=== PATIENT | female | born 1945 ===

== ENCOUNTER 2017-01-01 10:25 | Observation (INO) | payer MEDICAID ==
--- NOTE | 2017-01-01 11:16 | ED PDOC ---
Arrival/HPI - General Chief Complaint: Syncope Time Seen by Provider: 01/01/17 10:29 Historian: Patient - History of Present Illness Narrative History of Present Illness (Text): 01/01/17 11:16 A 71 year old female, who denies any past medical history, presents to the emergency department complaining of dizziness and a syncopal episode this morning approximately 07:15. History obtained by daughter. Daughter reports patient walked to the bathroom, felt dizzy and fell backwards. Patient denies any injuries or complaints. Patient denies any headache, neck pain, back pain, fever, chills, nausea, vomiting, diarrhea, abdominal pain, urinary symptoms, chest pain, shortness of breath or any other complaints. PMD: Dr. Weinberg Time/Duration: Other (This morning, approximately 07:15) Quality: Other Context: Home Past Medical History - Provider Review Nursing Documentation Reviewed: Yes - Cardiac Hx Cardiac Disorders: No - Pulmonary Hx Respiratory Disorders: No - Neurological Hx Neurological Disorder: Yes Hx Dizziness: Yes - HEENT Hx HEENT Disorder: Yes Hx Cataracts: Yes Other/Comment: partially blind - Renal Hx Renal Disorder: No - Endocrine/Metabolic Hx Endocrine Disorders: No - Hematological/Oncological Hx Blood Disorders: No - Integumentary Hx Dermatological Disorder: No - Musculoskeletal/Rheumatological Hx Musculoskeletal Disorders: No - Gastrointestinal Hx Gastrointestinal Disorders: No - Genitourinary/Gynecological Hx Genitourinary Disorders: No - Psychiatric Hx Psychophysiologic Disorder: No Hx Substance Use: No - Anesthesia Hx Anesthesia Reactions: No Family/Social History - Physician Review Nursing Documentation Reviewed: Yes Family/Social History: No Known Family HX Smoking Status: Never Smoked Hx Alcohol Use: No Hx Substance Use: No Allergies/Home Meds Allergies/Adverse Reactions: Allergies No Known Allergies Allergy (Verified 01/01/17 10:30) Home Medications: Home Meds Medication Instructions Recorded Confirmed Multivitamin/Iron/Folic Acid 1 each PO DAILY 01/01/17 01/01/17 [Centrum Women Tablet] Review of Systems - Physician Review All systems were reviewed & negative as marked: Yes - Review of Systems Constitutional: absent: Fevers Respiratory: absent: SOB Cardiovascular: Syncope. absent: Chest Pain Gastrointestinal: absent: Abdominal Pain, Diarrhea, Nausea, Vomiting Genitourinary Female: absent: Dysuria, Frequency, Hematuria, Urine Output Changes Musculoskeletal: absent: Back Pain, Neck Pain Neurological: Dizziness. absent: Headache Physical Exam - Physical Exam Narrative Physical Exam (Text): Constitutional: No acute distress. Head: Normocephalic. Atraumatic. Eyes: PERRL. ENT: Moist mucous membranes. Neck: Supple. No midline tenderness. Cardiovascular: Regular rate. Chest: No tenderness. Respiratory: Clear to auscultation bilaterally. GI: Soft. Nontender. Nondistended. Back: No CVA tenderness. No midline tenderness. Musculoskeletal: No tenderness or swelling of extremities. Full ROM. Skin: No rash. Neurologic: Alert, no focal deficit. Vital Signs Reviewed: Yes Vital Signs Temp Pulse Resp BP Pulse Ox 01/01/17 12:31 84 18 149/79 99 01/01/17 10:34 97.8 F 87 18 158/82 H 99 Temperature: Afebrile Blood Pressure: Hypertensive Pulse: Regular Respiratory Rate: Normal Appearance: Positive for: Well-Appearing, Non-Toxic, Comfortable Pain Distress: None Mental Status: Positive for: Alert and Oriented X 3 Finger Stick Blood Glucose: 138 Medical Decision Making ED Course and Treatment: 01/01/17 11:16 Impression: A 71 year old female presents after syncopal episode. Patient notes dizziness but denies any injuries. Plan: -- Head CT -- Chest xray -- Pelvis xray -- Labs -- Urine culture and Urinalysis -- Reassess and disposition Progress Notes: EKG shows NSR at [address]/T wave changes, normal intervals. Interpreted by me. Report Date : 01/01/2017 12:33:18 PROCEDURE: CT HEAD WITHOUT CONTRAST. Dictator : Alireza Guaman MD IMPRESSION: Probable focal acute left temporal parenchymal hemorrhage without associated extra-axial or intraventricular hemorrhage. CXR no acute disease. Pelvis no fracture. Dr. Ruiz accepts patient to hospitalist service. Dr. Lugo accepts patient to ICU. Dr. Duran accepts patient for neurosurgery consult. States no intervention at this time and recommends neurology consultation. Dr. Villalobos accepts patient for neurology consult. - Lab Interpretations Lab Results: 01/01/17 11:38 01/01/17 11:38 Lab Results 01/01/17 12:08: Urine Color Yellow, Urine Appearance Clear, Urine pH 6.0, Ur Specific [place] 1.020, Urine Protein Trace H, Urine Glucose (UA) Negative, Urine Ketones Negative, Urine Blood Trace-lysed H, Urine Nitrate Negative, Urine Bilirubin Negative, Urine Urobilinogen 0.2, Ur Leukocyte Esterase Negative , Urine RBC 0 - 2, Urine WBC 0 - 2, Ur Epithelial Cells 0 - 2, Urine Bacteria Few, Coarse Granular Casts Trace H 01/01/17 11:38: Sodium 141, Potassium 3.8, Chloride 105, Carbon Dioxide 26, Anion Gap 14, BUN 13, Creatinine 0.5, Est GFR ( Amer) > 60, Est GFR (Non- Af Amer) > 60, Random Glucose 114 H, Calcium 10.0, Total Bilirubin 0.9, AST 28, ALT 28, Alkaline Phosphatase 83, Total Creatine Kinase 62, Troponin I < 0.01, Total Protein 8.1, Albumin 4.6, Globulin 3.5, Albumin/Globulin Ratio 1.3 01/01/17 11:38: WBC 7.3, RBC 4.88, Hgb 13.4, Hct 41.0, MCV 84.0, MCH 27.5, MCHC 32.7, RDW 13.8, Plt Count 364, MPV 9.7, Gran % 63.9, Lymph % (Auto) 27.7, [place] % (Auto) 6.0, Eos % (Auto) 1.6, Baso % (Auto) 0.8, Gran # 4.69, Lymph # 2.0, [place] # 0.4, Eos # 0.1, Baso # 0.06 I have reviewed the lab results: Yes - RAD Interpretation Radiology Orders: 01/01/17 11:15 HEAD W/O CONTRAST [CT] Stat CHEST ONE VIEW [RAD] Stat PELVIS ONE VIEW [RAD] Stat - Scribe Statement The provider has reviewed the documentation as recorded by the [facility] Provider Scribe Attestation: All medical record entries made by the Scribe were at my direction and personally dictated by me. I have reviewed the chart and agree that the record accurately reflects my personal performance of the history, physical exam, medical decision making, and the department course for this patient. I have also personally directed, reviewed, and agree with the discharge instructions and disposition. Disposition/Present on Arrival - Present on Arrival Any Indicators Present on Arrival: No History of DVT/PE: No History of Uncontrolled Diabetes: No Urinary Catheter: No History of Decub. Ulcer: No History Surgical Site Infection Following: None - Disposition Have Diagnosis and Disposition been Completed?: Yes Diagnosis: Fall, Parenchymal hemorrhage Disposition: HOSPITALIZED Disposition Time: 13:14 Patient Plan: Admission, ICU Condition: STABLE
[2017-01-01 11:39] LABS: ADD MANUAL DIFF? NO
[2017-01-01 11:42] LABS: BASO # 0.06 K/mm3 (0.0-2.0); BASO % 0.8 % (0.0-3.0); EOS # 0.1 (0.0-0.7); EOS % 1.6 % (1.5-5.0); GRAN # 4.69 (1.4-6.5); GRAN % 63.9 % (50.0-68.0); LYMPH % 27.7 % (22.0-35.0); MEAN CORPUSCULAR HEMOGLOBIN 27.5 pg (25.0-35.0); MEAN CORPUSCULAR HGB CONC 32.7 g/dl (31.0-37.0); MEAN PLATELET VOLUME 9.7 fl (7.0-11.0); MONO # 0.4 (0.1-0.6); PLATELET COUNT 364 10^3/uL (120.0-450.0); RED CELL DISTRIBUTION WIDTH 13.8 % (11.5-14.5); WHITE BLOOD COUNT 7.3 10^3/ul (4.5-11.0)
[2017-01-01 11:53] LABS: ALB/GLOB RATIO 1.3 (1.1-1.8); ALKALINE PHOSPHATASE 83 U/L (38-133); ALT/SGPT 28 U/L (7-56); AST/SGOT 28 U/L (15-39); BILIRUBIN,TOTAL 0.9 mg/dL (0.2-1.3); BLOOD UREA NITROGEN 13 mg/dL (7-21); CARBON DIOXIDE 26 mmol/L (21-33); CHLORIDE 105 mmol/L (98-107); GFR AFRICAN-AMERICAN > 60; GLUCOSE,RANDOM 114 mg/dL (70-110); POTASSIUM 3.8 mmol/L (3.6-5.0); TOTAL PROTEIN 8.1 g/dL (5.8-8.3)
[2017-01-01 11:59] LABS: SODIUM 141 mmol/L (132-148)
[2017-01-01 12:10] LABS: TROPONIN I < 0.01 ng/mL
[2017-01-01 12:13] LABS: URINE BILIRUBIN NEGATIVE (NEGATIVE); URINE BLOOD TRACE-LYSED (NEGATIVE); URINE GLUCOSE (UA) NEGATIVE (NEGATIVE); URINE KETONE NEGATIVE (NEGATIVE); URINE LEUKOCYTE ESTERASE NEGATIVE Leu/uL (NEGATIVE); URINE PROTEIN TRACE mg/dL (<30 mg/dL); URINE UROBILINOGEN 0.2 E.U./dL (<1 E.U./dL)
[2017-01-01 12:14] LABS: URINE APPEARANCE CLEAR (CLEAR); URINE COLOR YELLOW (YELLOW)
[2017-01-01 12:27] LABS: URINE BACTERIA FEW (NEG); URINE EPITHELIAL CELLS 0 - 2 /hpf (0-5); URINE RBC 0 - 2 /hpf (0-2); URINE WBC 0 - 2 /hpf (0-6)
--- NOTE | 2017-01-01 12:35 | CT ---
PROCEDURE: CT HEAD WITHOUT CONTRAST. HISTORY: fall, headstrike COMPARISON: None available. TECHNIQUE: Axial computed tomography images were obtained through the head/brain without intravenous contrast. Radiation dose: Total exam DLP = 677.45 mGy-cm. This CT exam was performed using one or more of the following dose reduction techniques: Automated exposure control, adjustment of the mA and/or kV according to patient size, and/or use of iterative reconstruction technique. FINDINGS: HEMORRHAGE: Small focal rounded high attenuation, likely acute hemorrhage, posterior left temporal lobe, approximately 11 mm diameter. No extra-axial or intraventricular hemorrhage appreciated. BRAIN: No mass effect or edema. Mild age-appropriate atrophy. VENTRICLES: Unremarkable. No hydrocephalus. CALVARIUM: Unremarkable. PARANASAL SINUSES: Minimal chronic sphenoid sinusitis. MASTOID AIR CELLS: Unremarkable as visualized. No inflammatory changes. OTHER FINDINGS: None. IMPRESSION: Probable focal acute left temporal parenchymal hemorrhage without associated extra-axial or intraventricular hemorrhage.
--- NOTE | 2017-01-01 14:27 | CP.PCM.PN ---
Subjective - Date & Time of Evaluation Date of Evaluation: 01/01/17 Time of Evaluation: 14:26 - Subjective Subjective: A 71 year old female, who denies any past medical history, presents to the emergency department complaining of dizziness and a syncopal episode this morning Daughter reports patient walked to the bathroom, felt dizzy and fell backwards. Patient denies any injuries or complaints. Patient denies any headache, neck pain, back pain, fever, chills, nausea, vomiting, diarrhea, abdominal pain, urinary symptoms, chest pain, shortness of breath or any other complaints. CT shows 1 cm intra-cerebral hematoma This is non surgical lesion Suggest neurology consult for futher work up and further treatment Objective - Vital Signs/Intake and Output Vital Signs (last 24 hours): Temp Pulse Resp BP Pulse Ox 97.8 F 84 18 149/79 99 01/01/17 10:34 01/01/17 12:31 01/01/17 12:31 01/01/17 12:31 01/01/17 12:31
[2017-01-01 14:47] LABS: INR 0.98 (0.93-1.08); PARTIAL THROMBOPLASTIN TIME 27.1 Seconds (23.7-30.8)
--- NOTE | 2017-01-01 14:56 | RAD ---
PROCEDURE: CHEST RADIOGRAPH, 1 VIEW HISTORY: syncope and fall COMPARISON: 12/31/2016 FINDINGS: LUNGS: Right basilar opacity, vaguely linear, likely subsegmental atelectasis. Linear atelectasis at left base. PLEURA: No pneumothorax or pleural fluid seen. CARDIOVASCULAR: Normal. OSSEOUS STRUCTURES: No significant abnormalities. VISUALIZED UPPER ABDOMEN: Normal. OTHER FINDINGS: None. IMPRESSION: Probable bibasilar subsegmental atelectasis. Followup advised.
--- NOTE | 2017-01-01 14:56 | RAD ---
PROCEDURE: Radiographs of the pelvis. HISTORY: fall COMPARISON: None. FINDINGS: BONES: Pelvic Bones: Unremarkable. Hips: Grossly unremarkable. JOINTS: Sacroiliac Joints: Unremarkable. Pubic Symphysis: Unremarkable. OTHER FINDINGS: None. IMPRESSION: Unremarkable radiographs of the pelvis.
[2017-01-01 15:35] VITALS: BMI 29.2
[2017-01-01] MEDS ORDERED: Pneumococcal 23-Valent Vaccine IM ONE (15:35)
--- NOTE | 2017-01-01 16:12 | CP.PCM.HP ---
<Clementina Cervantes - Last Filed: 01/01/17 17:18> History of Present Illness - History of Present Illness History of Present Illness: PGY-1 H&P 71 yo female with PMH of HTN, retinal detachment, cataract, and essential tremor presents after fall. This morning patient was in the bathroom when she begin to feel dizzy and fell backwards hitting her head. She described the dizziness as the room spinning. Patients states that she did not lose consciousness during the episode, she denies bowel or bladder incontinence. After the fall patient called family member to help her. Patient had previous episode of dizziness a few months ago, at that time her BP was elevated. This morning after the fall, family states patient BP was around 147/74. Per family, few years previously patient had incidental finding of an old bleed on CT scan. Patient denies fever, chills, n/v/d/c, urinary symptoms, chest pain, sob. PMH: HTN, retinal detachment, cataract, essential tremor PSH: 3-4 eye surgeries for retinal detachment and cataracts social hx: denies smoking, alcohol, or illicit drug use family hx: denies heart disease, lung disease, cancers home meds: denies allergy: NKDA PMD: Dr. Weinberg Present on Admission - Present on Admission Any Indicators Present on Admission: No Review of Systems - Constitutional Constitutional: absent: Chills, Fever, Weight Gain, Weight Loss - EENT Eyes: Loss of Vision. absent: Change in Vision Nose/Mouth/Throat: absent: Nasal Congestion, Sore Throat - Cardiovascular Cardiovascular: absent: Chest Pain, Diaphoresis, Dyspnea, Leg Edema - Respiratory Respiratory: Cough. absent: Dyspnea - Gastrointestinal Gastrointestinal: absent: Abdominal Pain, Constipation, Diarrhea, Nausea, Vomiting - Genitourinary Genitourinary: absent: Difficulty Urinating, Dysuria - Musculoskeletal Additional comments: essential tremor - Integumentary Integumentary: absent: Rash, Swelling, Wounds - Neurological Neurological: Dizziness, Loss of Vision. absent: Focal Weakness, Syncope - Hematologic/Lymphatic Hematologic: absent: Easy Bleeding, Easy Bruising Past Patient History - Past Social History Smoking Status: Never Smoked Alcohol: None Drugs: Denies - CARDIAC Hx Cardiac Disorders: No - PULMONARY Hx Respiratory Disorders: No - NEUROLOGICAL Hx Neurological Disorder: Yes (shakes head side to side) Hx Dizziness: Yes - HEENT Hx HEENT Problems: Yes Hx Cataracts: Yes (b/l sx) Other/Comment: visually impaired both eyes, hx detached retina - RENAL Hx Chronic Kidney Disease: No - ENDOCRINE/METABOLIC Hx Endocrine Disorders: No - HEMATOLOGICAL/ONCOLOGICAL Hx Blood Disorders: No - INTEGUMENTARY Hx Dermatological Problems: No - MUSCULOSKELETAL/RHEUMATOLOGICAL Hx Falls: No - GASTROINTESTINAL Hx Gastrointestinal Disorders: No - GENITOURINARY/GYNECOLOGICAL Hx Genitourinary Disorders: No - PSYCHIATRIC Hx Psychophysiologic Disorder: No - SURGICAL HISTORY Hx Surgeries: No - ANESTHESIA Hx Anesthesia Reactions: No Meds Allergies/Adverse Reactions: Allergies Allergy/AdvReac Type Severity Reaction Status Date / Time No Known Allergies Allergy Verified 01/01/17 10:30 Physical Exam - Constitutional Appears: Well, No Acute Distress - Head Exam Head Exam: ATRAUMATIC, NORMOCEPHALIC - Eye Exam Eye Exam: Normal appearance - ENT Exam ENT Exam: Mucous Membranes Moist - Respiratory Exam Respiratory Exam: Clear to Auscultation Bilateral, NORMAL BREATHING PATTERN. absent: Rhonchi, Wheezes, Respiratory Distress - Cardiovascular Exam Cardiovascular Exam: REGULAR RHYTHM. absent: Tachycardia, Diastolic murmur, Systolic Murmur - GI/Abdominal Exam GI & Abdominal Exam: Normal Bowel Sounds, Soft. absent: Distended, Firm, Tenderness - Extremities Exam Extremities exam: Positive for: normal inspection. Negative for: pedal edema - Neurological Exam Neurological exam: Alert, Oriented x3 - Expanded Neurological Exam Expanded Upper motor neuron: Babinski Sign: Normal Neuro motor strength exam: Left Upper Extremity: 5, Right Upper Extremity: 5, Left Lower Extremity: 5, Right Lower Extremity: 5 Coma Scale Eye Opening: SPONTANEOUS Coma Scale Motor Response: OBEYS COMMANDS Coma Scale Verbal: Oriented Coma Scale Total: 15 - Skin Skin Exam: Dry, Intact, Normal Color, Warm Results - Vital Signs Recent Vital Signs: Last Vital Signs Temp 97.8 F 01/01/17 15:28 Pulse 84 01/01/17 15:28 Resp 18 01/01/17 15:28 BP 149/79 01/01/17 15:28 Pulse Ox 97 01/01/17 14:25 - Labs Result Diagrams: 01/01/17 11:38 01/01/17 11:38 Labs: Laboratory Results - last 24 hr 01/01/17 14:25 PT 10.6 INR 0.98 APTT 27.1 Assessment & Plan - Assessment and Plan (Free Text) Assessment: 71 yo female with PMH of HTN, retinal detachment, catact, and essential tumor presents after fall with intercranial hemorrhage. CT head showed acute left temporal parechymal hemorrhage with extra-axial or intraventricular hemorrhage. Plan: 1. acute left temporal parechymal hemorrhage - admitted to ICU - CT head showed acute left temporal parechymal hemorrhage with extra-axial or intraventricular hemorrhage - EKG- nsr - hold all anticoagulation - neuro checks - f/u MRI and MRA - seizure/ fall/ aspiration precautions - PT/OT eval - neurosurgery consulted- no surgical intervention at this time - Neuro consulted 2. Dizziness and fall - EKG- nsr - CBC, CMP wnl - pelvic xray unremarkable - will get carotid dopplers and echo - fall precautions - neuro consulted 3. HTN - no home medications - cont to monitor ppx - GI- protonix - DVT- SCDs, no anticoagulation due to parechymal hemorrhage <Chandrika Ruiz - Last Filed: 01/01/17 17:40> Results - Vital Signs Recent Vital Signs: Last Vital Signs Temp 97.8 F 01/01/17 15:28 Pulse 84 01/01/17 15:28 Resp 18 01/01/17 15:28 BP 149/79 01/01/17 15:28 Pulse Ox 97 01/01/17 14:25 - Labs Result Diagrams: 01/01/17 11:38 01/01/17 11:38 Labs: Laboratory Results - last 24 hr 01/01/17 14:25 PT 10.6 INR 0.98 APTT 27.1 Attending/Attestation - Attestation I have personally seen and examined this patient.: Yes I have fully participated in the care of the patient.: Yes I have reviewed all pertinent clinical information: Yes Notes (Text): 01/01/17 17:38 attending note; Patient seen and examined with resident in ER bed 7. History from patient's son by the bedside. Patient is visually impaired. Speaks only Bengali. Patient is a 71 yo female with PMH of HTN, retinal detachment, cataract, and essential tremor presents after fall. This morning patient was in the bathroom when she begin to feel dizzy and fell backwards hitting her head. CT head showed 11 mm temporal bleed. Neurosurgery evaluation appreciated. No procedures needed. Neurology evaluation requested. MRI/MRA ordered. History of hypertension; not on any medication. monitor blood pressure closely. Starts meds as needed. Admit the patient to ICU for close observation. PT evaluation requested. the diagnosis, follow-up plan discussed with patient's son in detail. Upon discharge the patient will follow-up with PMD .
--- NOTE | 2017-01-01 16:20 | CARD ---
APPROVED REPORT EKG Measurement Heart [id number] <Conclusion> Normal sinus rhythm Normal ECG
--- NOTE | 2017-01-01 20:23 | CON ---
DATE: 01/01/2017 HISTORY OF PRESENT ILLNESS: This is a 71-year-old female who came to the Emergency Room with the com plaint of dizziness, had a syncopal episode. The patient walked to the bathroom, felt very dizzy and fell backward. Denies any headache or neck pain. No nausea, no vomiting, no abdominal pain. CAT s can of the head was done, which showed a 1 cm intracerebral hematoma in the left temporal region and I was called to evaluate the patient. REVIEW OF SYSTEMS: A 10-point review of system was negative except for dizziness. HOME MEDICATIONS: Multivitamin Centrum. PHYSICAL EXAMINATION: HEENT: Normocephalic, atraumatic. NECK: Supple. NEUROLOGIC: Awake, alert, oriented to time and place. Cranial nerves II through XII were tested. P upils reactive. EOM intact. Moves all the extremities spontaneously. Deep tendon reflexes 1+. Bot h plantars downgoing. Sensory appears intact. Cerebellar and gait deferred. VITAL SIGNS: Blood pressure 158/82. IMPRESSION: This is a 71-year-old female after a syncopal episode hit her head and fall and a bleed, left temporal intracerebral bleed. Neurosurgeon on and we ordered MRI and MRA and further man agement after the results of above tests. Zechariah Villalobos MD cc: [id number] TT: 01/01/2017 20:23:14 Confirmation # [id number] Dictation # [id number]
[2017-01-02 05:58] LABS: BLOOD UREA NITROGEN 14 mg/dL (7-21); CALCIUM 9.2 mg/dL (8.4-10.5); CARBON DIOXIDE 26 mmol/L (21-33); CHLORIDE 107 mmol/L (98-107); CHOLESTEROL 161 mg/dL (130-200); GFR AFRICAN-AMERICAN > 60; GLUCOSE,RANDOM 86 mg/dL (70-110); POTASSIUM 3.5 mmol/L (3.6-5.0); SODIUM 143 mmol/L (132-148)
[2017-01-02 06:25] LABS: HEMATOCRIT 36.1 % (36.0-48.0); MEAN CELL VOLUME 83.8 fL (80.0-105.0); MEAN CORPUSCULAR HEMOGLOBIN 27.1 pg (25.0-35.0); MEAN CORPUSCULAR HGB CONC 32.4 g/dl (31.0-37.0); MEAN PLATELET VOLUME 9.6 fl (7.0-11.0); RED CELL DISTRIBUTION WIDTH 13.7 % (11.5-14.5); WHITE BLOOD COUNT 7.4 10^3/ul (4.5-11.0)
[2017-01-02 06:34] VITALS: TEMP 98.3
[2017-01-02] MEDS ORDERED: Potassium Chloride 20 mEq ER Tab PO ONE (08:46)
[2017-01-02] MEDS ORDERED: FOLIC ACID PO SCH (10:00)
[2017-01-02] MEDS ORDERED: IRON PO SCH (10:00)
[2017-01-02] MEDS ORDERED: Multivitamin With Minerals Tab PO SCH (10:00)
[2017-01-02] MEDS ORDERED: Pantoprazole 40 mg EC Tab PO SCH (10:00)
[2017-01-02] MEDS ORDERED: MULTIVITAMIN PO SCH (10:00)
--- NOTE | 2017-01-02 11:46 | MRI ---
PROCEDURE: MRI BRAIN WITHOUT CONTRAST HISTORY: follow up COMPARISON: CT head 01/01/2017 TECHNIQUE: Multiplanar, multisequence MR images of the brain were obtained without intravenous contrast enhancement. FINDINGS: HEMORRHAGE: No evidence of acute hemorrhage. Focal susceptibility artifact posterior left temporal lobe. This corresponds to an appearance on T2 weighted imaging of central heterogeneous hyperdense lesion with surrounding rim of hemosiderin consistent with a cavernous angioma. No surrounding edema to suggest acute hemorrhage. DWI: No evidence of an acute or early subacute infarction. BRAIN PARENCHYMA: No mass effect or edema. Mild bilateral frontal atrophy versus chronic small frontal subdural hygromas. Mild periventricular white matter signal abnormality on FLAIR images, consistent with chronic microvascular ischemic change. VENTRICLES: Unremarkable. No hydrocephalus. CRANIUM: Unremarkable. ORBITS: Grossly unremarkable. PARANASAL SINUSES/MASTOIDS: Minimal chronic sphenoid sinusitis. VASCULAR SYSTEM: Skull base flow voids intact. OTHER FINDINGS: None. 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 No evidence of acute hemorrhage. Small bilateral frontal subdural hygromas, chronic come versus bilateral frontal atrophy.
--- NOTE | 2017-01-02 11:57 | PN ---
DATE: 01/02/2017 SUBJECTIVE: The patient is resting and is noted to be at this point alert and sitting up in bed. No respiratory distress. No complaints of headache or pain. No nausea, vomiting, no diarrhea. The rafita turner seems to have all extremities functioning and no obvious neuro deficits. PHYSICAL EXAMINATION: VITAL SIGNS: Her temperature is 98.3, her pulse is 73, respirations are 16, and BP is 122/63. SKIN: Warm and dry. HEAD: Atraumatic, normocephalic. EYES: Difficult to assess. EARS, NOSE AND THROAT: Seemed to be within normal limits. NECK: Supple. No JVD, no thyroid enlargement, no lymph nodes. HEART: Has a regular rate and rhythm, normal S1, S2. LUNGS: Reveal good breath sounds bilaterally. ABDOMEN: Soft, decreased bowel sounds. GENITALIA AND RECTAL: Deferred. MUSCULOSKELETAL: No joint deformities. EXTREMITIES: Reveal no significant lower extremity edema. NEUROLOGIC: She seems to be grossly intact. LABORATORIES: Her white count is 7.4, hemoglobin is 11.7, hematocrit 36.1 with platelets of 335,000. Sodium is 143, potassium 3.5, chloride 107, CO2 of 26 with a BUN of 14, creatinine of 0.5, and a gl ucose of 86. IMPRESSION: The patient had syncopal episode with a fall and hitting her head. She has intracerebra l bleed. PLAN: We will continue to monitor closely in the ICU. The patient's vitals are stable at this time. She is being followed by neurosurgery as well as neurology and further scans will be done if they a re requested. The patient's labs will be evaluated and corrected as needed. Marcell Lugo MD cc: [id number] TT: 01/02/2017 11:56:40 Confirmation # [id number] Dictation # [id number]
--- NOTE | 2017-01-02 12:25 | CP.PCM.PCO ---
Physician Communication Note - Physician Communication Note Physician Communication Note: pt can go home,mri brain showed no bleed, just angioma. PT outpatient.
--- NOTE | 2017-01-02 13:29 | CP.PCM.DIS ---
Provider - Provider Date of Admission: 01/01/17 13:44 Attending physician: Chandrika Ruiz MD Primary care physician: Dominik Weinberg MD Time Spent in preparation of Discharge (in minutes): 35 Hospital Course - Lab Results Lab Results: Most Recent Lab Values WBC 7.4 10^3/ul (4.5-11.0) 01/02/17 05:00 RBC 4.31 10^6/uL (3.5-6.1) 01/02/17 05:00 Hgb 11.7 gm/dL (12.0-16.0) L 01/02/17 05:00 Hct 36.1 % (36.0-48.0) 01/02/17 05:00 MCV 83.8 fL (80.0-105.0) 01/02/17 05:00 MCH 27.1 pg (25.0-35.0) 01/02/17 05:00 MCHC 32.4 g/dl (31.0-37.0) 01/02/17 05:00 RDW 13.7 % (11.5-14.5) 01/02/17 05:00 Plt Count 335 10^3/uL (120.0-450.0) 01/02/17 05:00 MPV 9.6 fl (7.0-11.0) 01/02/17 05:00 Gran % 63.9 % (50.0-68.0) 01/01/17 11:38 Lymph % (Auto) 27.7 % (22.0-35.0) 01/01/17 11:38 Cole % (Auto) 6.0 % (1.0-6.0) 01/01/17 11:38 Eos % (Auto) 1.6 % (1.5-5.0) 01/01/17 11:38 Baso % (Auto) 0.8 % (0.0-3.0) 01/01/17 11:38 Gran # 4.69 (1.4-6.5) 01/01/17 11:38 Lymph # 2.0 (1.2-3.4) 01/01/17 11:38 Cole # 0.4 (0.1-0.6) 01/01/17 11:38 Eos # 0.1 (0.0-0.7) 01/01/17 11:38 Baso # 0.06 K/mm3 (0.0-2.0) 01/01/17 11:38 PT 10.6 Seconds (9.9-11.8) 01/01/17 14:25 INR 0.98 (0.93-1.08) 01/01/17 14:25 APTT 27.1 Seconds (23.7-30.8) 01/01/17 14:25 Sodium 143 mmol/L (132-148) 01/02/17 05:00 Potassium 3.5 mmol/L (3.6-5.0) L 01/02/17 05:00 Chloride 107 mmol/L (98-107) 01/02/17 05:00 Carbon Dioxide 26 mmol/L (21-33) 01/02/17 05:00 Anion Gap 14 (10-20) 01/02/17 05:00 BUN 14 mg/dL (7-21) 01/02/17 05:00 Creatinine 0.5 mg/dL (0.5-1.4) 01/02/17 05:00 Est GFR ( Amer) > 60 01/02/17 05:00 Est GFR (Non-Af Amer) > 60 01/02/17 05:00 Random Glucose 86 mg/dL (70-110) 01/02/17 05:00 Calcium 9.2 mg/dL (8.4-10.5) 01/02/17 05:00 Total Bilirubin 0.9 mg/dL (0.2-1.3) 01/01/17 11:38 AST 28 U/L (15-39) 01/01/17 11:38 ALT 28 U/L (7-56) 01/01/17 11:38 Alkaline Phosphatase 83 U/L (38-133) 01/01/17 11:38 Total Creatine Kinase 62 U/L (35-230) 01/01/17 11:38 Troponin I < 0.01 ng/mL 01/01/17 11:38 Total Protein 8.1 g/dL (5.8-8.3) 01/01/17 11:38 Albumin 4.6 g/dL (3.0-4.8) 01/01/17 11:38 Globulin 3.5 gm/dL 01/01/17 11:38 Albumin/Globulin Ratio 1.3 (1.1-1.8) 01/01/17 11:38 Triglycerides 90 mg/dL (35-160) 01/02/17 05:00 Cholesterol 161 mg/dL (130-200) 01/02/17 05:00 LDL Cholesterol Direct 105 mg/dL (0-129) 01/02/17 05:00 HDL Cholesterol 46 mg/dL (29-60) 01/02/17 05:00 Urine Color Yellow (YELLOW) 01/01/17 12:08 Urine Appearance Clear (CLEAR) 01/01/17 12:08 Urine pH 6.0 (4.7-8.0) 01/01/17 12:08 Ur Specific [place] 1.020 (1.005-1.035) 01/01/17 12:08 Urine Protein Trace mg/dL (<30 mg/dL) H 01/01/17 12:08 Urine Glucose (UA) Negative mg/dL (NEGATIVE) 01/01/17 12:08 Urine Ketones Negative mg/dL (NEGATIVE) 01/01/17 12:08 Urine Blood Trace-lysed (NEGATIVE) H 01/01/17 12:08 Urine Nitrate Negative (NEGATIVE) 01/01/17 12:08 Urine Bilirubin Negative (NEGATIVE) 01/01/17 12:08 Urine Urobilinogen 0.2 E.U./dL (<1 E.U./dL) 01/01/17 12:08 Ur Leukocyte Esterase Negative Abilio/uL (NEGATIVE) 01/01/17 12:08 Urine RBC 0 - 2 /hpf (0-2) 01/01/17 12:08 Urine WBC 0 - 2 /hpf (0-6) 01/01/17 12:08 Ur Epithelial Cells 0 - 2 /hpf (0-5) 01/01/17 12:08 Urine Bacteria Few (NEG) 01/01/17 12:08 Coarse Granular Casts Trace /hpf (0-2) H 01/01/17 12:08 - Hospital Course Hospital Course: Patient is a 71 -year-old [place] female with the PMH of HTN, retinal detachment, visually impaired, cataract, and essential tremor presents after fall. Patient was in the bathroom when she begin to feel dizzy and fell backwards hitting her head. She described the dizziness as the room spinning. Patients states that she did not lose consciousness during the episode, she denies bowel or bladder incontinence. 1. Dizziness and fall; CT head showed possible 11 mm left temporal hemorrhage. Neurology evaluation with Dr. Villalobos appreciated. MRI showed vascular malformation without any hemorrhage. Advised to start aspirin 81 mg daily. 2. History of hypertension; but currently blood pressure is normal. Advised to follow-up with PMD and start medications as needed . Heart healthy diet . 3.gait instability ; possibly secondary to visual impairment .PT evaluation requested .patient's family wanted to take her home and do outpatient physical therapy.prescription given. 4. MRA of head done results pending. Carotid Doppler done. Results pending. Advised to follow-up with medical records for results. Family wanted her to be discharged home today because of language barrier/ visually impaired/does not eat hospital food and needs some family member to be with her all the time. Upon discharge the patient will follow-up with PMD . 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 Follow-up with PMD . 2. Follow-up blood pressure closely and start medications if needed. Heart healthy diet. 3. Start outpatient physical therapy. Prescription given. Fall precautions. 4. Follow up with neurology Dr. Villalobos as needed. 5. Follow-up with neurosurgery Dr. Duran as needed. Referrals: Dominik Weinberg MD [Primary Care Provider] -
[2017-01-02 16:31] VITALS: BP 126/61; PULSE 75; RESP 19; O2SAT 94
--- NOTE | 2017-01-03 07:50 | CARD ---
APPROVED REPORT EXAM: Two-dimensional and M-mode echocardiogram with Doppler and color Doppler. 2D DIMENSIONS LVEF (%)55.0 (>50%) M-Mode DIMENSIONS Left Atrium (MM)3.70 (2.5-4.0cm)Aortic Root2.80 (2.2-3.7cm) Aortic Cusp Exc.1.60 (1.5-2.0cm) Aortic Valve AoV Peak Qylqrmid532.0cm/sAoV VTI29.8cmAO Peak GR.8mmHg LVOT Peak Psbixmxy939.0cm/sLVOT VTI20.50cmAO Mean GR.5mmHg AI P 1/2 [id number] Mitral Valve MV E Usirtcmt89.8cm/sMV A Okxowoem62.1cm/sE/A ratio0.8 TDI Lateral E' Peak V9.07cm/sMedial E' Peak V6.43cm/sE/Lateral E'5.8 E/Medial E'8.2 Tricuspid Valve TR Peak Iesgwmxt278jh/sRAP [id number] Peak Gr.27mmHg [id number] LEFT VENTRICLE The left ventricle is normal size. There is normal left ventricular wall thickness. The left ventricular function is normal. The left ventricular ejection fraction is within the normal range. There is normal LV segmental wall motion. Transmitral Doppler flow pattern is Grade I-abnormal relaxation pattern. RIGHT VENTRICLE The right ventricle is normal size. There is normal right ventricular wall thickness. The right ventricular systolic function is normal. ATRIA The left atrium size is normal. The right atrium size is normal. AORTIC VALVE The aortic valve is moderately sclerotic. There is moderate aortic regurgitation. MITRAL VALVE The mitral valve is moderately thickened. TRICUSPID VALVE There is mild pulmonary hypertension. GREAT VESSELS The aortic root is normal in size. The IVC is normal in size and collapses >50% with inspiration. <Conclusion> The left ventricle is normal size. There is normal left ventricular wall thickness. The left ventricular function is normal. The left ventricular ejection fraction is within the normal range. There is normal LV segmental wall motion. Transmitral Doppler flow pattern is Grade I-abnormal relaxation pattern. There is moderate aortic regurgitation. There is mild pulmonary hypertension.
--- NOTE | 2017-01-03 08:38 | CON ---
DATE: 01/01/2017 REQUESTING PHYSICIAN: . The patient is a 71-year-old female that presented with a syncopal episode and dizziness. HISTORY OF PRESENT ILLNESS: The patient is a 71-year-old female that presented to the Emergency Room with dizziness and a history of syncopal episode, falling to the floor and hitting her head this mor jason. The daughter states the patient was walking in the bathroom when all this occurred. She denie s a headache and no neck pain, no back pain, no fever, chills, nausea, vomiting, no diarrhea, abdomin al pain, urinary symptoms, chest pain or shortness of breath. PAST MEDICAL HISTORY: Is significant for the fact that she is blind and there is really no other pas t medical history. ALLERGIES: The patient has no known allergies. MEDICATIONS: Can be evaluated as per the nurses' intake form. SOCIAL HISTORY: No history of ETOH, smoking or drug abuse. FAMILY HISTORY: Noncontributory. REVIEW OF SYSTEMS: CONSTITUTIONAL: All negative. HEENT: The patient is blind. RESPIRATORY: All negative. CARDIOVASCULAR: All negative. GASTROINTESTINAL: All negative. GENITOURINARY: All negative. MUSCULOSKELETAL: All negative. NEUROPSYCHIATRIC: The patient had intracerebral bleed from the fall and head trauma. ENDOCRINE: All negative. HEMATOLOGIC: All negative. IMMUNOLOGIC: All negative. INTEGRITY: All negative. PHYSICAL EXAMINATION: VITAL SIGNS: Her temperature is 97.8, her pulse is 84, respiration 18, and BP is 149/79. SKIN: Warm and dry. HEAD: Atraumatic, normocephalic. EYES: Barely reactive to light. EARS, NOSE AND THROAT: Seem to be within normal limits. NECK: Supple, no JVD, no thyroid enlargement, no lymph nodes. HEART: Has regular rate and rhythm, normal S1, S2. LUNGS: Reveal good breath sounds bilaterally. ABDOMEN: Soft, nontender, normal bowel sounds. GENITALIA AND RECTAL: Deferred. MUSCULOSKELETAL: No joint deformities. EXTREMITIES: Reveal no significant edema. NEUROLOGIC: The patient seems to be grossly intact other than the fact that she is blind. LABORATORY DATA: Reveals a white count of 7.3, hemoglobin 13.4, hematocrit 41.0, platelets of 364,00 0. Sodium of 141, potassium 3.8, chloride 105 with a CO2 of 26, BUN of 13, creatinine of 0.5, and a glucose of 114. CT of the head revealed probable focal acute left temporal parenchymal hemorrhage wi thout associated extraaxial or intraventricular hemorrhage. Chest x-ray reveals impression: Probabl e bibasilar subsegmental atelectasis. Her PT is 10.6, INR is 0.98 and PTT is 27.1. IMPRESSION: The patient has acute left temporal parenchymal hemorrhage without associated intraventr icular hemorrhage. She has bilateral lower lobe atelectasis and she is blind. She presents to the ostal with a syncopal episode and dizziness. PLAN: The patient has been admitted to the intensive care unit. She will be monitored closely and w e will start neuro protocol for neuro checks. The patient is on Protonix as well as multivitamins at this time and we will follow her labs closely and treat aggressively along with the other customer service sales consultant s and the primary care doctor. Note that the patient does have neurosurgery as well as neurology on board. Marcell Lugo MD cc: [id number] TT: 01/01/2017 21:04:45 Confirmation # [id number] Dictation # [id number] arin
--- NOTE | 2017-01-03 08:39 | US ---
PROCEDURE: Bilateral carotid artery duplex ultrasound HISTORY: Carotid stenosis PHYSICIAN(S): Alireza Han MD. TECHNIQUE: Duplex sonography and color-flow Doppler were used to evaluate the carotid bifurcations and limited segments of the vertebral arteries bilaterally. FINDINGS: There is mild smooth hypoechoic plaque noted at the carotid bifurcations bilaterally. The peak systolic velocity in the proximal right internal carotid artery is 69 cm/sec. This corresponds to a 20 to 39% proximal right ICA stenosis. Normal systolic velocities are noted in the proximal right external carotid artery. There is antegrade flow in the right vertebral artery. The peak systolic velocity in the proximal left internal carotid artery is 85 cm/sec. This corresponds to a 20 to 39% proximal left ICA stenosis. Normal systolic velocities are noted in the proximal left external carotid artery. There is antegrade flow in the left vertebral artery. IMPRESSION: 1. Bilateral 20-39% proximal ICA stenoses. 2. Antegrade flow in both vertebral arteries.
--- NOTE | 2017-01-03 10:33 | MRI ---
PROCEDURE: Magnetic Resonance Angiography Brain HISTORY: intracranial bleed COMPARISON: None available. TECHNIQUE: 3D time of flight MR angiography of the intracranial arteries was performed. Rotating maximum intensity projection images were generated. FINDINGS: INTERNAL CEREBRAL ARTERIES: Unremarkable. The skull base, petrous, cavernous and supraclinoid segments are bilaterally widely patient. ANTERIOR CEREBRAL ARTERIES: Unremarkable. A1 and A2 segments are widely patent. Smaller distal branches unremarkable, as visualized. MIDDLE CEREBRAL ARTERIES: Unremarkable. M1 and M2 segments are widely patent. Perisylvian branches grossly symmetric. POSTERIOR CIRCULATION: Basilar Artery: Unremarkable. Distal Vertebral Arteries: Unremarkable. Posterior Cerebral Arteries: Unremarkable. Posterior Inferior Cerebellar Arteries: Unremarkable. ANEURYSM/ VASCULAR MALFORMATIONS: None. OTHER FINDINGS: There is a 10 mm cavernous hemangioma in the left temporal lobe with a well-circumscribed hemosiderin rim. The report concurs with the preliminary [facility] report IMPRESSION: Unremarkable MR angiography of the brain.
== END 2017-01-02 06:00 | disposition home or self-care (01) ==
LOC: ED 10:25 → ERH 13:44 → INTOOBSV 13:44 → ERH 13:50 → CCU 17:00
PROVIDERS: ADMIT Internal Medicine; ATTEND Internal Medicine
DX: D18.02 Hemangioma of intracranial structures (principal); D18.1 Lymphangioma, any site; Q04.8 Other specified congenital malformations of brain; I10 Essential (primary) hypertension; H33.20 Serous retinal detachment, unspecified eye; H26.9 Unspecified cataract; G25.0 Essential tremor; H54.0 Blindness, both eyes; J98.11 Atelectasis; R26.9 Unspecified abnormalities of gait and mobility; W19.XXXA Unspecified fall, initial encounter; Y93.89 Activity, other specified; Y92.091 Bathroom in other non-institutional residence as the place of occurrence of the external cause; Y99.9 Unspecified external cause status
CPT/HCPCS: 70450; 70544; 70551; 71010; 72170; 80048; 80053; 80061; 81001; 82550; 82948; 83036; 84484; 85025; 85027; 85610; 85730; 87081; 87086; 93005; 93306; 93880; 99285; G0378